=== PATIENT | female | born 1965 | race African-American/Black ===

== ENCOUNTER 2016-08-02 10:04 | Emergency (ER) | payer MEDICAID ==
[~2016-08-02] VITALS: Ht 175.3 cm; Wt 86.8 kg
[2016-08-02 11:15] LABS: BASOPHILS % (AUTO) 0.7 % (0.0-2.0); EOSINOPHILS % (AUTO) 0.9 % (1.0-6.0); HEMATOCRIT 41.8 % (36-46); HEMOGLOBIN 13.5 g/dL (12.0-16.0); LYMPHOCYTES # (AUTO) 2.6 K/uL (1.0-4.8); LYMPHOCYTES % (AUTO) 41.7 % (22.0-44.0); MEAN CORPUSCULAR HEMOGLOBIN 28.9 pg (26.0-34.0); MEAN CORPUSCULAR HGB CONC 32.2 G/dL (31.0-37.0); MEAN CORPUSCULAR VOLUME 90 fL (80-100); MONOCYTES # (AUTO) 0.3 K/uL (0.1-1.0); MONOCYTES % (AUTO) 4.6 % (2.0-9.0); NEUTROPHILS # (AUTO) 3.2 K/uL (1.8-7.7); NEUTROPHILS % (AUTO) 52.1 % (40.0-70.0); PLATELET COUNT (AUTO) 221 K/uL (150-450); RED BLOOD CELL COUNT(AUTO) 4.66 MIL/uL (4.00-5.20); RED CELL DISTRIBUTION WIDTH 14.7 % (11.5-14.5); WHITE BLOOD COUNT (AUTO) 6.2 K/uL (4.5-11.0)
[2016-08-02 11:26] LABS: ANION GAP 10 mmol/L (8-16); CALCIUM, TOTAL 9.2 mg/dL (8.8-10.5); CARBON DIOXIDE 26 mmol/L (22-29); CHLORIDE 104 mmol/L (98-107); CREATININE 0.79 mg/dL (0.60-1.30); GLOMERULAR FILTR. RATE CALC > 60 mL/min (>60); POTASSIUM 4.2 mmol/L (3.5-5.1); SODIUM SERUM 140 mmol/L (136-145); UREA NITROGEN, BLOOD 8 mg/dL (7-18)
[2016-08-02 11:30] LABS: ALANINE AMINOTRANSFERASE 22 U/L (12-78); ALBUMIN 3.8 g/dL (3.4-5.0); ASPARTATE AMINOTRANSFERASE 20 U/L (15-37); BILIRUBIN,TOTAL 0.4 mg/dL (0.1-1.0); TOTAL PROTEIN, SERUM 7.9 g/dL (6.4-8.2)
[2016-08-02 11:38] LABS: B-TYPE NATRIURETIC PEPTIDE < 5 pg/mL (0-100)
[2016-08-02 12:38] VITALS: BP 146/87
== END 2016-08-02 12:43 | disposition home or self-care (01) ==
LOC: EMS 10:04
DX: R07.89 Other chest pain (principal); G47.00 Insomnia, unspecified; R14.0 Abdominal distension (gaseous); F17.210 Nicotine dependence, cigarettes, uncomplicated; Z78.0 Asymptomatic menopausal state
CPT/HCPCS: 93005; 99285; 99406

== ENCOUNTER 2017-07-14 11:09 | Emergency (ER) | payer MEDICAID ==
[~2017-07-14] VITALS: Ht 175.3 cm; Wt 84.5 kg
[2017-07-14] MEDS ORDERED: FLUORESCEIN SODIUM 1 MG STRIP ONE (11:52)
[2017-07-14] MEDS ORDERED: BACITRACIN/POLYMYXIN B 3.5 GM OPHTHALMIC OINTMENT OS ONE (12:45)
[2017-07-14 13:35] VITALS: BP 155/93
== END 2017-07-14 14:09 | disposition home or self-care (01) ==
LOC: EMS 11:11
DX: T30.4 Corrosion of unspecified body region, unspecified degree (principal); I10 Essential (primary) hypertension; J02.9 Acute pharyngitis, unspecified; F17.210 Nicotine dependence, cigarettes, uncomplicated; Y92.89 Other specified places as the place of occurrence of the external cause
CPT/HCPCS: 99283; 99406

== ENCOUNTER 2018-01-07 10:29 | Emergency (ER) | payer MEDICAID ==
[~2018-01-07] VITALS: Ht 175.3 cm; Wt 86.4 kg
[2018-01-07 13:07] LABS: BASOPHILS % (AUTO) 0.8 % (0.0-2.0); EOSINOPHILS % (AUTO) 1.7 % (1.0-6.0); HEMATOCRIT 39.9 % (36-46); HEMOGLOBIN 13.3 g/dL (12.0-16.0); LYMPHOCYTES # (AUTO) 2.3 K/uL (1.0-4.8); LYMPHOCYTES % (AUTO) 40.3 % (22.0-44.0); MEAN CORPUSCULAR HEMOGLOBIN 29.1 pg (26.0-34.0); MEAN CORPUSCULAR HGB CONC 33.4 G/dL (31.0-37.0); MEAN CORPUSCULAR VOLUME 87 fL (80-100); MONOCYTES # (AUTO) 0.3 K/uL (0.1-1.0); MONOCYTES % (AUTO) 4.4 % (2.0-9.0); NEUTROPHILS # (AUTO) 3.1 K/uL (1.8-7.7); NEUTROPHILS % (AUTO) 52.8 % (40.0-70.0); PLATELET COUNT (AUTO) 194 K/uL (150-450); RED BLOOD CELL COUNT(AUTO) 4.58 MIL/uL (4.00-5.20); RED CELL DISTRIBUTION WIDTH 14.9 % (11.5-14.5)
[2018-01-07 13:14] LABS: ANION GAP 7 mmol/L (8-16); CALCIUM, TOTAL 9.3 mg/dL (8.8-10.5); CARBON DIOXIDE 27 mmol/L (22-29); CHLORIDE 106 mmol/L (98-107); CREATININE 0.83 mg/dL (0.60-1.30); GLOMERULAR FILTR. RATE CALC > 60 mL/min (>60); GLUCOSE,RANDOM 107 mg/dL (70-110); POTASSIUM 3.9 mmol/L (3.5-5.1); SODIUM SERUM 140 mmol/L (136-145); UREA NITROGEN, BLOOD 10 mg/dL (7-18)
[2018-01-07 13:24] LABS: B-TYPE NATRIURETIC PEPTIDE 17 pg/mL (0-100)
[2018-01-07 13:39] LABS: ALANINE AMINOTRANSFERASE 17 U/L (12-78); ALBUMIN 3.5 g/dL (3.4-5.0); ALKALINE PHOSPHATASE 90 U/L (46-116); ASPARTATE AMINOTRANSFERASE 20 U/L (15-37); BILIRUBIN,TOTAL 0.4 mg/dL (0.1-1.0); CREATINE KINASE MB 0.5 ng/mL (0-5); CREATINE KINASE, TOTAL 108 U/L (26-192); TOTAL PROTEIN, SERUM 7.4 g/dL (6.4-8.2)
[2018-01-07 14:38] VITALS: BP 128/80
== END 2018-01-07 14:39 | disposition home or self-care (01) ==
LOC: EMS 10:30
DX: M79.661 Pain in right lower leg (principal); M79.662 Pain in left lower leg; R25.2 Cramp and spasm; F17.210 Nicotine dependence, cigarettes, uncomplicated
CPT/HCPCS: 85379; 93005; 99285

== ENCOUNTER 2018-10-03 12:19 | Emergency (ER) | payer MEDICAID ==
[~2018-10-03] VITALS: Ht 175.3 cm; Wt 96.4 kg
[2018-10-03 14:44] LABS: BASOPHILS % (AUTO) 0.6 % (0.0-2.0); EOSINOPHILS % (AUTO) 0.8 % (1.0-6.0); HEMATOCRIT 41.1 % (36-46); HEMOGLOBIN 13.4 g/dL (12.0-16.0); LYMPHOCYTES # (AUTO) 2.8 K/uL (1.0-4.8); LYMPHOCYTES % (AUTO) 44.3 % (22.0-44.0); MEAN CORPUSCULAR HEMOGLOBIN 28.7 pg (26.0-34.0); MEAN CORPUSCULAR HGB CONC 32.5 G/dL (31.0-37.0); MEAN CORPUSCULAR VOLUME 88 fL (80-100); MONOCYTES # (AUTO) 0.3 K/uL (0.1-1.0); MONOCYTES % (AUTO) 4.1 % (2.0-9.0); NEUTROPHILS # (AUTO) 3.2 K/uL (1.8-7.7); NEUTROPHILS % (AUTO) 50.2 % (40.0-70.0); PLATELET COUNT (AUTO) 189 K/uL (150-450); RED BLOOD CELL COUNT(AUTO) 4.64 MIL/uL (4.00-5.20); RED CELL DISTRIBUTION WIDTH 15.1 % (11.5-14.5)
[2018-10-03] MEDS ORDERED: IOVERSOL 350 MG/ML 150 ML VIAL ONE (15:03)
[2018-10-03 15:04] LABS: ALANINE AMINOTRANSFERASE 23 U/L (12-78); ALBUMIN 3.8 g/dL (3.4-5.0); ALKALINE PHOSPHATASE 107 U/L (46-116); ANION GAP 10 mmol/L (8-16); ASPARTATE AMINOTRANSFERASE 23 U/L (15-37); BILIRUBIN,TOTAL 0.3 mg/dL (0.1-1.0); CALCIUM, TOTAL 9.6 mg/dL (8.8-10.5); CARBON DIOXIDE 23 mmol/L (22-29); CHLORIDE 106 mmol/L (98-107); GLUCOSE,RANDOM 79 mg/dL (70-110); HCG,QUANTITATIVE 4 mIU/mL (0-6); LIPASE 127 U/L (73-393); POTASSIUM 4.1 mmol/L (3.5-5.1); SODIUM SERUM 139 mmol/L (136-145); TOTAL PROTEIN, SERUM 7.6 g/dL (6.4-8.2); UREA NITROGEN, BLOOD 8 mg/dL (7-18)
[2018-10-03] MEDS ORDERED: SODIUM CHLORIDE 0.9% 100 ML ONE (15:04)
[2018-10-03 15:14] LABS: GLOMERULAR FILTR. RATE CALC > 60 mL/min (>60)
[2018-10-03 16:46] VITALS: BP 159/87
== END 2018-10-03 16:53 | disposition home or self-care (01) ==
LOC: EMS 12:20
DX: R10.9 Unspecified abdominal pain (principal); M89.8X8 Other specified disorders of bone, other site; F17.210 Nicotine dependence, cigarettes, uncomplicated
CPT/HCPCS: 36415; 74177; 80053; 83690; 84702; 85025; 99284; J7050; Q9967

== ENCOUNTER 2018-11-06 08:30 | Emergency (ER) | payer MEDICAID ==
[~2018-11-06] VITALS: Ht 175.3 cm; Wt 93.2 kg
[2018-11-06] MEDS ORDERED: FLUORESCEIN SODIUM 1 MG STRIP OD ONE (10:00)
[2018-11-06 10:17] VITALS: BP 148/79
== END 2018-11-06 10:19 | disposition home or self-care (01) ==
LOC: EMS 08:31
DX: H00.011 Hordeolum externum right upper eyelid (principal); R03.0 Elevated blood-pressure reading, without diagnosis of hypertension; F17.210 Nicotine dependence, cigarettes, uncomplicated

== ENCOUNTER 2019-02-18 16:27 | Emergency (ER) | payer MEDICAID ==
[~2019-02-18] VITALS: Ht 175.3 cm; Wt 88.2 kg
[2019-02-18 16:58] VITALS: BP 141/82
== END 2019-02-18 17:30 | disposition left against medical advice (07) ==
LOC: EMS 16:30
DX: M25.511 Pain in right shoulder (principal); F17.210 Nicotine dependence, cigarettes, uncomplicated; Z53.21 Procedure and treatment not carried out due to patient leaving prior to being seen by health care provider